=== PATIENT | male | born 1965 | race Caucasian/White ===

== ENCOUNTER 2023-06-27 17:28 | Emergency (ER) | payer OTHER ==
[~2023-06-27] VITALS: Ht 154.9 cm; Wt 79.4 kg
[2023-06-27 17:40] VITALS: BP_SYST 136; PULSE 103; RESP 18; TEMP 98.7; O2SAT 96
[2023-06-27 18:03] VITALS: BP_SYST 135; PULSE 99; RESP 18; TEMP 98.7; O2SAT 96
[2023-06-27] MEDS: AMPICILLIN SODIUM/SULBACTAM NA 3 GM VIAL IM ONE (18:22)
[2023-06-27] MEDS ORDERED: BACITRACIN 1 GM OINT TP ONE (18:28)
[2023-06-27] MEDS: IBUPROFEN 800 MG TABLET PO ONE (18:34)
[2023-06-27] MEDS: DIPHTH,PERTUSS(ACELL),TET VAC 0.5 ML VIAL (Tdap) I.M. ONE (18:35)
[2023-06-27] MEDS: BACITRACIN ZINC 15 GM TOPICAL OINTMENT TP ONE (18:35)
[2023-06-27] MEDS ORDERED: AUG875 PO (19:18)
[2023-06-27] MEDS ORDERED: IBUP-1969 PO (19:18)
== END 2023-06-27 19:38 | disposition home or self-care (01) ==
LOC: SED 17:28
DX: S51.832A Puncture wound without foreign body of left forearm, initial encounter (principal); S61.442A Puncture wound with foreign body of left hand, initial encounter; Z79.899 Other long term (current) drug therapy; W54.0XXA Bitten by dog, initial encounter; Y93.89 Activity, other specified; Y92.89 Other specified places as the place of occurrence of the external cause; Y99.8 Other external cause status
CPT/HCPCS: 99284; 90715; 96372; 90471; J0295